=== PATIENT | female | born 1945 | race Hispanic/Latino ===

== ENCOUNTER 2021-09-26 18:15 | Emergency (ER) | payer MEDICARE, BC ==
[2021-09-26 18:55] LABS: #Basophils 0.1 thou/uL (0.0-0.2); #Eosinphils 2.1 thou/uL (0.0-0.7); #Lymphocytes 3.8 thou/uL (1.20-3.40); #Neutrophils 3.4 thou/uL (1.40-6.50); %Basophils 1.2 % (0.0-1.0); %Eosinophils 20.1 % (0.0-10.0); %Lymphocytes 36.3 % (21.0-51.0); %Neutrophils 32.4 % (42.0-75.0); Hemoglobin 12.6 g/dL (12.0-16.0); Mean Corpuscular Volume 90.9 fL (78.0-98.0); Mean Platelet Volume 7.4 fL (7.4-10.4); Platelet Count 249 thou/uL (130-400); RBC Distribution Width 11.9 % (11.5-14.5); Red Blood Cell (RBC) Count 4.18 mill/uL (4.20-5.40); White Blood Cell (WBC) Count 10.4 thou/uL (4.8-10.8)
[2021-09-26 19:16] LABS: ALT (SGPT) 13 U/L (8-55); AST (SGOT) 24 U/L (5-34); Alkaline Phosphatase 61 U/L (40-110); Anion Gap 10 mmol/L (10-20); BUN (Urea Nitrogen) 18 mg/dL (9.8-20.1); Bilirubin, Total 0.3 mg/dL (0.2-1.2); Calc. Creatinine Clearance 0 mL/min (70-130); Calcium 9.3 mg/dL (7.8-10.44); Carbon Dioxide 28 mmol/L (23-31); Chloride 103 mmol/L (98-107); Globulin 3.6 g/dL (2.4-3.5); Glucose 98 mg/dL (83-110); Lipase 33 U/L (8-78); Potassium 4.3 mmol/L (3.5-5.1); Protein, Total 7.6 g/dL (5.8-8.1); Sodium 137 mmol/L (136-145)
== END 2021-09-26 21:16 | disposition home or self-care (01) ==
LOC: ERS 18:15
DX: R07.9 Chest pain, unspecified (principal); E78.00 Pure hypercholesterolemia, unspecified; I10 Essential (primary) hypertension
CPT/HCPCS: 71045; 80053; 83690; 84484; 85025; 93005

== ENCOUNTER 2022-10-21 01:48 | Inpatient (IN) | payer MEDICARE, BC ==
[2022-10-21] MEDS ORDERED: Nitroglycerin 0.4 MG TAB (25 Tab Bottle) SL PRN (03:14)
[2022-10-21 03:23] VITALS: BMI 24.0
[2022-10-21 04:15] LABS: Hemoglobin A1c 5.5 % (4.0-6.0)
[2022-10-21 04:48] LABS: Cardiac Risk 2.8 (Less than 4.5)
[2022-10-21 07:48] LABS: Troponin I 1.936 ng/mL (< 0.028)
[2022-10-21 07:48] LABS: Troponin I 1.305 ng/mL (< 0.028)
[2022-10-21] MEDS: Aspirin Chewable 81 MG TAB PO SCH (08:16)
[2022-10-21] MEDS ORDERED: ALPRAZolam 1 MG TAB PO PRN (09:42)
[2022-10-21] MEDS ORDERED: hydrALAZINE 20 MG/ML VIAL SLOW IVP PRN (09:43)
[2022-10-21 10:12] LABS: #Basophils 0.1 thou/uL (0.0-0.2); #Eosinphils 0.5 thou/uL (0.0-0.7); #Monocytes 0.8 thou/uL (0.11-0.59); #Neutrophils 4.6 thou/uL (1.40-6.50); %Basophils 0.7 % (0.0-1.0); %Eosinophils 5.9 % (0.0-10.0); %Lymphocytes 27.4 % (21.0-51.0); %Monocytes 9.3 % (0.0-10.0); %Neutrophils 55.5 % (42.0-75.0); Hemoglobin 12.6 g/dL (12.0-16.0); Mean Corpuscular HGB CONC 31.8 g/dL (32.0-36.0); Mean Corpuscular Hemoglobin 28.9 pg (27.0-31.0); Mean Corpuscular Volume 90.8 fl (78.0-98.0); Mean Platelet Volume 10.1 fL (7.4-10.4); Platelet Count 231 10x3/uL (130-400); RBC Distribution Width 13.2 % (11.5-14.5); Red Blood Cell (RBC) Count 4.36 mill/uL (4.20-5.40); White Blood Cell (WBC) Count 8.2 10x3/uL (4.8-10.8)
[2022-10-21 11:14] LABS: ALT (SGPT) 15 U/L (8-55); AST (SGOT) 31 U/L (5-34); Albumin 4.1 g/dL (3.4-4.8); Alkaline Phosphatase 68 U/L (40-110); Anion Gap 14 mmol/L (10-20); BUN (Urea Nitrogen) 12 mg/dL (9.8-20.1); Bilirubin, Total 0.5 mg/dL (0.2-1.2); Calc. Creatinine Clearance 59 mL/min (70-130); Carbon Dioxide 24 mmol/L (23-31); Chloride 103 mmol/L (98-107); Estimated GFR 89; Glucose 94 mg/dL (83-110); Phosphorus 3.3 mg/dL (2.3-4.7); Potassium 4.4 mmol/L (3.5-5.1); Protein, Total 7.1 g/dL (5.8-8.1); Sodium 137 mmol/L (136-145)
[2022-10-21] MEDS ORDERED: Communication Order-Pharmacy FS SCH (16:00)
[2022-10-21] MEDS: ALPRAZolam 0.5 MG TAB PO SCH (21:06)
[2022-10-22] MEDS: Sodium Chloride 0.9% 1,000 ML IV SCH ×2 (00:10→10:27)
[2022-10-22 04:56] LABS: #Basophils 0.1 thou/uL (0.0-0.2); #Eosinphils 0.3 thou/uL (0.0-0.7); #Monocytes 0.9 thou/uL (0.11-0.59); #Neutrophils 3.2 thou/uL (1.40-6.50); %Basophils 0.9 % (0.0-1.0); %Eosinophils 4.9 % (0.0-10.0); %Lymphocytes 34.3 % (21.0-51.0); %Monocytes 12.7 % (0.0-10.0); %Neutrophils 47.1 % (42.0-75.0); Hemoglobin 12.1 g/dL (12.0-16.0); Mean Corpuscular HGB CONC 32.1 g/dL (32.0-36.0); Mean Platelet Volume 9.9 fL (7.4-10.4); Platelet Count 232 10x3/uL (130-400); RBC Distribution Width 13.4 % (11.5-14.5); Red Blood Cell (RBC) Count 4.32 mill/uL (4.20-5.40); White Blood Cell (WBC) Count 6.8 10x3/uL (4.8-10.8)
[2022-10-22 05:09] LABS: Mean Corpuscular Volume 87.3 fl (78.0-98.0)
[2022-10-22 05:16] LABS: ALT (SGPT) 14 U/L (8-55); AST (SGOT) 30 U/L (5-34); Albumin 3.6 g/dL (3.4-4.8); Alkaline Phosphatase 61 U/L (40-110); Anion Gap 12 mmol/L (10-20); BUN (Urea Nitrogen) 12 mg/dL (9.8-20.1); Bilirubin, Total 0.5 mg/dL (0.2-1.2); Calc. Creatinine Clearance 63 mL/min (70-130); Calcium 8.8 mg/dL (7.8-10.44); Carbon Dioxide 23 mmol/L (23-31); Chloride 104 mmol/L (98-107); Estimated GFR 90; Globulin 3.2 g/dL (2.4-3.5); Glucose 102 mg/dL (83-110); Potassium 3.8 mmol/L (3.5-5.1); Protein, Total 6.8 g/dL (5.8-8.1); Sodium 135 mmol/L (136-145)
[2022-10-22] MEDS: Atorvastatin Calcium 20 MG TAB PO SCH (06:17)
[2022-10-22] MEDS: ALPRAZolam 0.5 MG TAB PO SCH ×2 (06:17→17:35)
[2022-10-22] MEDS: Aspirin Chewable 81 MG TAB PO SCH (06:17)
[2022-10-22] MEDS ORDERED: Heparin 10,000 UNITS/ 10 ML VIAL ONE (07:50)
[2022-10-22] MEDS ORDERED: Lidocaine 1% (PF) 30 ML VIAL ONE (07:51)
[2022-10-22] MEDS ORDERED: Midazolam HCl 2 mg/2 ml Vial ONE (08:24)
[2022-10-22] MEDS ORDERED: fentaNYL 50 mcg/mL 1 mL Vial ONE (08:24)
[2022-10-22] MEDS ORDERED: TICAGRELOR 90 MG TABLET ONE (08:55)
[2022-10-22] MEDS ORDERED: Nitroglycerin 50 MG/250 ML BOT 250 ML ONE (08:59)
[2022-10-22] MEDS ORDERED: Iopamidol 370 76% 100 ML VIAL ONE (10:18)
[2022-10-22] MEDS: Acetaminophen 325 MG TAB PO PRN ×2 (12:14→17:33)
[2022-10-22] MEDS: TICAGRELOR 90 MG TABLET PO SCH (21:09)
[2022-10-23] MEDS: Acetaminophen 325 MG TAB PO PRN (04:43)
[2022-10-23 05:19] LABS: #Eosinphils 0.1 thou/uL (0.0-0.7); #Monocytes 1.1 thou/uL (0.11-0.59); #Neutrophils 5.8 thou/uL (1.40-6.50); %Basophils 0.5 % (0.0-1.0); %Eosinophils 0.7 % (0.0-10.0); %Lymphocytes 13.5 % (21.0-51.0); %Monocytes 13.5 % (0.0-10.0); %Neutrophils 71.3 % (42.0-75.0); Mean Corpuscular HGB CONC 31.3 g/dL (32.0-36.0); Mean Corpuscular Hemoglobin 27.6 pg (27.0-31.0); Mean Corpuscular Volume 88.2 fl (78.0-98.0); Mean Platelet Volume 10.1 fL (7.4-10.4); Platelet Count 232 10x3/uL (130-400); RBC Distribution Width 13.4 % (11.5-14.5); Red Blood Cell (RBC) Count 3.98 mill/uL (4.20-5.40); White Blood Cell (WBC) Count 8.1 10x3/uL (4.8-10.8)
[2022-10-23 05:57] LABS: ALT (SGPT) 14 U/L (8-55); AST (SGOT) 41 U/L (5-34); Albumin 3.5 g/dL (3.4-4.8); Alkaline Phosphatase 56 U/L (40-110); Anion Gap 12 mmol/L (10-20); BUN (Urea Nitrogen) 9 mg/dL (9.8-20.1); Bilirubin, Total 0.8 mg/dL (0.2-1.2); Calc. Creatinine Clearance 61 mL/min (70-130); Calcium 8.8 mg/dL (7.8-10.44); Carbon Dioxide 25 mmol/L (23-31); Chloride 103 mmol/L (98-107); Estimated GFR 89; Globulin 3.1 g/dL (2.4-3.5); Glucose 103 mg/dL (83-110); Potassium 3.5 mmol/L (3.5-5.1); Protein, Total 6.6 g/dL (5.8-8.1); Sodium 136 mmol/L (136-145)
[2022-10-23] MEDS: Aspirin Chewable 81 MG TAB PO SCH (08:21)
[2022-10-23] MEDS: ALPRAZolam 0.5 MG TAB PO SCH (08:21)
[2022-10-23] MEDS: Atorvastatin Calcium 20 MG TAB PO SCH (08:22)
[2022-10-23] MEDS: TICAGRELOR 90 MG TABLET PO SCH (08:22)
[2022-10-23] MEDS ORDERED: Lisinopril 2.5 MG TAB PO SCH (09:00)
[2022-10-23 12:38] VITALS: TEMP 97.8
[2022-10-23 13:14] VITALS: BP 150/76
== END 2022-10-23 15:00 | disposition home or self-care (01) | DRG 247 ==
LOC: 2SW 02:57 → OBSVTOIN 16:07
PROVIDERS: ADMIT Internal Medicine; ATTEND Hospitalist
PROC: 027035Z Dilation of Coronary Artery, One Artery with Two Drug-eluting Intraluminal Devices, Percutaneous Approach (ICD-10-PCS; principal; 2022-10-21)
PROC: 4A023N7 Measurement of Cardiac Sampling and Pressure, Left Heart, Percutaneous Approach (ICD-10-PCS; 2022-10-21)
PROC: B2151ZZ Fluoroscopy of Left Heart using Low Osmolar Contrast (ICD-10-PCS; 2022-10-21)
PROC: B2111ZZ Fluoroscopy of Multiple Coronary Arteries using Low Osmolar Contrast (ICD-10-PCS; 2022-10-21)
DX: I21.4 Non-ST elevation (NSTEMI) myocardial infarction (principal); E78.5 Hyperlipidemia, unspecified; I10 Essential (primary) hypertension; F41.9 Anxiety disorder, unspecified; F32.A Depression, unspecified; I25.10 Atherosclerotic heart disease of native coronary artery without angina pectoris; Z79.899 Other long term (current) drug therapy; Z90.49 Acquired absence of other specified parts of digestive tract
CPT/HCPCS: 36415; 71045; 80053; 80061; 83036; 83735; 83880; 84100; 84145; 84443; 85025; 85347; 92928; 93005; 93010; 93306; 93458; 93798; 99152; 99153; C1760; C1769; C1874; C1887; C9600; G0378; J1644; J1650; J2001; J2250; J3010; J7050

== ENCOUNTER 2023-08-20 04:09 | Inpatient (IN) | payer BC, MEDICARE ==
[2023-08-20 04:32] LABS: #Basophils 0.1 thou/uL (0.0-0.2); #Eosinphils 0.7 thou/uL (0.0-0.7); #Monocytes 0.9 thou/uL (0.11-0.59); #Neutrophils 5.3 thou/uL (1.40-6.50); %Basophils 0.7 % (0.0-1.0); %Eosinophils 7.5 % (0.0-10.0); %Lymphocytes 19.9 % (21.0-51.0); %Monocytes 10.2 % (0.0-10.0); %Neutrophils 61.5 % (42.0-75.0); Hematocrit 36.1 % (36.0-47.0); Hemoglobin 11.7 g/dL (12.0-16.0); Mean Corpuscular HGB CONC 32.4 g/dL (32.0-36.0); Mean Corpuscular Hemoglobin 28.8 pg (27.0-31.0); Mean Corpuscular Volume 88.9 fl (78.0-98.0); Mean Platelet Volume 10.2 fL (7.4-10.4); Platelet Count 274 10x3/uL (130-400); RBC Distribution Width 13.6 % (11.5-14.5); Red Blood Cell (RBC) Count 4.06 mill/uL (4.20-5.40); White Blood Cell (WBC) Count 8.6 10x3/uL (4.8-10.8)
[2023-08-20 04:57] LABS: ALT (SGPT) 21 U/L (8-55); AST (SGOT) 53 U/L (5-34); Albumin 3.9 g/dL (3.4-4.8); Alkaline Phosphatase 66 U/L (40-110); Anion Gap 13 mmol/L (10-20); BUN (Urea Nitrogen) 12 mg/dL (9.8-20.1); Bilirubin, Total 0.5 mg/dL (0.2-1.2); Calc. Creatinine Clearance 0 mL/min (70-130); Calcium 8.8 mg/dL (7.8-10.44); Carbon Dioxide 25 mmol/L (23-31); Chloride 101 mmol/L (98-107); Estimated GFR 80; Globulin 3.4 g/dL (2.4-3.5); Glucose 115 mg/dL (83-110); Potassium 3.6 mmol/L (3.5-5.1); Protein, Total 7.3 g/dL (5.8-8.1); Sodium 135 mmol/L (136-145)
[2023-08-20 05:06] LABS: Troponin I 4.008 ng/mL (< 0.028)
[2023-08-20] MEDS ORDERED: Heparin 5,000 UNITS/ML VIAL ONE (05:39)
[2023-08-20] MEDS ORDERED: Heparin 25,000 units/D5W 500 ML ONE (05:40)
[2023-08-20 05:49] LABS: PTT 27.1 sec (22.9-36.1); Prothrombin Time 12.7 sec (12.0-14.7)
[2023-08-20] MEDS ORDERED: Aspirin Chewable 81 MG TAB ONE ×2 (06:02→09:18)
[2023-08-20] MEDS ORDERED: Nitroglycerin 0.4 MG TAB (25 Tab Bottle) ONE (07:03)
[2023-08-20] MEDS ORDERED: Acetaminophen 650 MG Suppository PR PRN (08:09)
[2023-08-20] MEDS ORDERED: Ondansetron PF 4 MG/2 ML Vial IVP PRN (08:09)
[2023-08-20] MEDS ORDERED: Communication Order-Pharmacy FS PRN (08:09)
[2023-08-20] MEDS ORDERED: Bisacodyl 5 MG TAB PO PRN (08:09)
[2023-08-20] MEDS ORDERED: Senokot S 8.6-50 MG TAB PO PRN (08:09)
[2023-08-20] MEDS ORDERED: Heparin 25,000 units/D5W 500 ML IVPB SCH (08:15)
[2023-08-20 08:26] LABS: Hematocrit 36.2 % (36.0-47.0); Hemoglobin 11.4 g/dL (12.0-16.0); Platelet Count 251 10x3/uL (130-400)
[2023-08-20] MEDS ORDERED: Acetaminophen 325 MG TAB ONE (09:11)
[2023-08-20] MEDS: Acetaminophen 325 MG TAB PO PRN (09:13)
[2023-08-20] MEDS: Lisinopril 2.5 MG TAB PO SCH (10:33)
[2023-08-20] MEDS: Aspirin Chewable 81 MG TAB PO SCH (10:33)
[2023-08-20] MEDS: TICAGRELOR 90 MG TABLET PO SCH (10:34)
[2023-08-20 12:14] LABS: Critical Call Chem Troponin I NUR.MC19 @1214; Troponin I 5.785 ng/mL (< 0.028)
[2023-08-20 19:05] LABS: Critical Call Chem Troponin I NUR.AP12 @1905; Troponin I 6.049 ng/mL (< 0.028)
[2023-08-20] MEDS: Heparin 10,000 UNITS/ 10 ML VIAL SLOW IVP SCH (19:17)
[2023-08-20] MEDS: Atorvastatin Calcium 40 MG TAB PO SCH (21:20)
[2023-08-20] MEDS: ALPRAZolam 0.5 MG TAB PO SCH (21:23)
[2023-08-21 02:07] LABS: #Basophils 0.1 thou/uL (0.0-0.2); #Monocytes 1.5 thou/uL (0.11-0.59); #Neutrophils 8.2 thou/uL (1.40-6.50); %Basophils 0.4 % (0.0-1.0); %Eosinophils 0.4 % (0.0-10.0); %Lymphocytes 11.8 % (21.0-51.0); %Monocytes 13.1 % (0.0-10.0); %Neutrophils 73.9 % (42.0-75.0); Hematocrit 35.6 % (36.0-47.0); Hemoglobin 12.1 g/dL (12.0-16.0); Mean Platelet Volume 10.3 fL (7.4-10.4); Platelet Count 262 10x3/uL (130-400); RBC Distribution Width 13.5 % (11.5-14.5); Red Blood Cell (RBC) Count 4.17 mill/uL (4.20-5.40); White Blood Cell (WBC) Count 11.2 10x3/uL (4.8-10.8)
[2023-08-21 02:12] LABS: Mean Corpuscular Volume 85.4 fl (78.0-98.0)
[2023-08-21 03:00] LABS: Anion Gap 16 mmol/L (10-20); BUN (Urea Nitrogen) 9 mg/dL (9.8-20.1); Calc. Creatinine Clearance 59 mL/min (70-130); Carbon Dioxide 22 mmol/L (23-31); Cardiac Risk 2.5 (Less than 4.5); Chloride 99 mmol/L (98-107); Cholesterol 170 mg/dl (< 200 Desired); Estimated GFR 91; Glucose 116 mg/dL (83-110); HDL Cholesterol 68 mg/dL (>60 Neg Risk); LDL Cholesterol, Calculated 83 mg/dL; Potassium 3.6 mmol/L (3.5-5.1); Sodium 133 mmol/L (136-145); Triglycerides 93 mg/dL (Less than 150)
[2023-08-21] MEDS: Sodium Chloride 0.9% 1,000 ML IV SCH (05:57)
[2023-08-21] MEDS ORDERED: Communication Order-Pharmacy FS SCH (06:00)
[2023-08-21] MEDS ORDERED: Heparin 10,000 UNITS/ 10 ML VIAL ONE (06:59)
[2023-08-21] MEDS ORDERED: Lidocaine 1% (PF) 30 ML VIAL ONE (06:59)
[2023-08-21] MEDS ORDERED: Nitroglycerin 50 MG/250 ML BOT 250 ML ONE (07:00)
[2023-08-21] MEDS ORDERED: Midazolam HCl 2 mg/2 ml Vial ONE (08:46)
[2023-08-21] MEDS ORDERED: fentaNYL 50 mcg/mL 1 mL Vial ONE (08:46)
[2023-08-21] MEDS ORDERED: Morphine 2 MG/ML VIAL ONE (11:00)
[2023-08-21] MEDS: Morphine 2 MG/ML VIAL SLOW IVP PRN (11:04)
[2023-08-21] MEDS ORDERED: Acetaminophen 325 MG TAB ONE (11:58)
[2023-08-21] MEDS ORDERED: Morphine 4 MG/ML VIAL ONE (15:27)
[2023-08-21] MEDS: Morphine 4 MG/ML VIAL SLOW IVP PRN (15:34)
[2023-08-21] MEDS: ALPRAZolam 1 MG TAB PO PRN (21:17)
[2023-08-21] MEDS: Ondansetron ODT 4 MG TAB PO PRN (21:23)
[2023-08-22 05:10] LABS: #Monocytes 1.3 thou/uL (0.11-0.59); #Neutrophils 5.9 thou/uL (1.40-6.50); %Basophils 0.4 % (0.0-1.0); %Eosinophils 0.1 % (0.0-10.0); %Lymphocytes 12.4 % (21.0-51.0); %Monocytes 15.7 % (0.0-10.0); Hematocrit 33.3 % (36.0-47.0); Hemoglobin 10.7 g/dL (12.0-16.0); Mean Corpuscular HGB CONC 32.1 g/dL (32.0-36.0); Mean Corpuscular Hemoglobin 28.3 pg (27.0-31.0); Mean Corpuscular Volume 88.1 fl (78.0-98.0); Mean Platelet Volume 10.5 fL (7.4-10.4); Platelet Count 232 10x3/uL (130-400); RBC Distribution Width 13.9 % (11.5-14.5); Red Blood Cell (RBC) Count 3.78 mill/uL (4.20-5.40); White Blood Cell (WBC) Count 8.2 10x3/uL (4.8-10.8)
[2023-08-22 05:38] LABS: ALT (SGPT) 87 U/L (8-55); AST (SGOT) 108 U/L (5-34); Albumin 3.5 g/dL (3.4-4.8); Alkaline Phosphatase 109 U/L (40-110); Anion Gap 13 mmol/L (10-20); BUN (Urea Nitrogen) 13 mg/dL (9.8-20.1); Bilirubin, Total 1.2 mg/dL (0.2-1.2); Calc. Creatinine Clearance 56 mL/min (70-130); Calcium 8.8 mg/dL (7.8-10.44); Carbon Dioxide 23 mmol/L (23-31); Chloride 104 mmol/L (98-107); Estimated GFR 90; Glucose 96 mg/dL (83-110); Potassium 3.9 mmol/L (3.5-5.1); Protein, Total 6.5 g/dL (5.8-8.1); Sodium 136 mmol/L (136-145)
[2023-08-22] MEDS: Metoprolol Tartrate 5 MG (5 mL) VIAL IVP PRN (06:54)
[2023-08-22 07:03] LABS: Hematocrit 36.2 % (36.0-47.0); Hemoglobin 11.6 g/dL (12.0-16.0); Platelet Count 236 10x3/uL (130-400)
[2023-08-22 07:28] LABS: Magnesium 1.9 mg/dL (1.6-2.6)
[2023-08-22 07:38] LABS: Critical Call Chem Troponin I NUR.MHC@0737; Troponin I 6.485 ng/mL (< 0.028)
[2023-08-22] MEDS: Apixaban 2.5 MG TAB PO SCH (21:19)
[2023-08-22] MEDS: Amiodarone 200 MG TAB PO SCH (21:19)
[2023-08-22] MEDS: Lisinopril 5 MG TAB PO SCH (21:19)
[2023-08-23 05:08] LABS: #Eosinphils 0.1 thou/uL (0.0-0.7); #Monocytes 1.2 thou/uL (0.11-0.59); #Neutrophils 5.4 thou/uL (1.40-6.50); %Basophils 0.5 % (0.0-1.0); %Eosinophils 1.8 % (0.0-10.0); %Lymphocytes 14.6 % (21.0-51.0); %Monocytes 15.2 % (0.0-10.0); %Neutrophils 67.4 % (42.0-75.0); Hematocrit 32.2 % (36.0-47.0); Hemoglobin 10.3 g/dL (12.0-16.0); Mean Corpuscular Hemoglobin 28.7 pg (27.0-31.0); Mean Corpuscular Volume 89.7 fl (78.0-98.0); Mean Platelet Volume 10.8 fL (7.4-10.4); Platelet Count 238 10x3/uL (130-400); Red Blood Cell (RBC) Count 3.59 mill/uL (4.20-5.40)
[2023-08-23 05:45] LABS: Anion Gap 13 mmol/L (10-20); BUN (Urea Nitrogen) 13 mg/dL (9.8-20.1); Calc. Creatinine Clearance 54 mL/min (70-130); Calcium 8.9 mg/dL (7.8-10.44); Carbon Dioxide 27 mmol/L (23-31); Chloride 101 mmol/L (98-107); Estimated GFR 89; Glucose 91 mg/dL (83-110); Potassium 3.6 mmol/L (3.5-5.1); Sodium 137 mmol/L (136-145)
[2023-08-23] MEDS: Carvedilol 3.125 MG TAB PO SCH (08:36)
[2023-08-23] MEDS: Aspirin 81 mg Enteric Coated Tablet PO SCH (08:36)
[2023-08-23 12:48] VITALS: BP 121/58; TEMP 97.4
[2023-08-23] MEDS ORDERED: FLU VACC QS2023(65UP)/MF59C/PF 60 MCG/0.5 ML SYRINGE IM ONE (18:45)
[2023-09-05] MEDS ORDERED: Amiodarone 200 MG TAB PO SCH (09:00)
[2023-09-19] MEDS ORDERED: Amiodarone 200 MG TAB PO SCH (09:00)
== END 2023-08-23 14:55 | disposition home or self-care (01) | DRG 322 ==
LOC: ERS 04:09 → ERHOLD 06:37 → 2NO 17:10
PROVIDERS: ADMIT Student in an Organized Health Care Education/Training Program; ATTEND Internal Medicine
PROC: 4A023N7 Measurement of Cardiac Sampling and Pressure, Left Heart, Percutaneous Approach (ICD-10-PCS; principal; 2023-08-21)
PROC: 027035Z Dilation of Coronary Artery, One Artery with Two Drug-eluting Intraluminal Devices, Percutaneous Approach (ICD-10-PCS; 2023-08-21)
PROC: B2151ZZ Fluoroscopy of Left Heart using Low Osmolar Contrast (ICD-10-PCS; 2023-08-21)
PROC: B2111ZZ Fluoroscopy of Multiple Coronary Arteries using Low Osmolar Contrast (ICD-10-PCS; 2023-08-21)
DX: I21.4 Non-ST elevation (NSTEMI) myocardial infarction (principal); I25.10 Atherosclerotic heart disease of native coronary artery without angina pectoris; I10 Essential (primary) hypertension; Z79.899 Other long term (current) drug therapy; Z79.82 Long term (current) use of aspirin; E78.00 Pure hypercholesterolemia, unspecified; I25.2 Old myocardial infarction; Z90.710 Acquired absence of both cervix and uterus; F41.9 Anxiety disorder, unspecified; Z90.49 Acquired absence of other specified parts of digestive tract; Z83.3 Family history of diabetes mellitus; I48.0 Paroxysmal atrial fibrillation
CPT/HCPCS: 36415; 80048; 80053; 80061; 83735; 83880; 84484; 85014; 85018; 85025; 85049; 85347; 85610; 85730; 92928; 93005; 93010; 93458; 93798; 96365; 96366; 96374; 99152; 99153; C1769; C1874; C1887; C9600; J1644; J2001; J2250; J2270; J2272; J3010; J7050; Q0162

== ENCOUNTER 2025-02-20 03:04 | Observation (INO) | payer BC, MEDICARE ==
[2025-02-20 03:52] LABS: #Basophils 0.07 10x3/uL (0.0-0.2); #Eosinophils 0.56 10x3/uL (0.0-0.7); #Monocytes 0.75 10x3/uL (0.11-0.59); #Neutrophils 1.82 10x3/uL (1.40-6.50); %Basophils 1.3 % (0.0-1.0); %Eosinophils 10.7 % (0.0-10.0); %Lymphocytes 38.5 % (21.0-51.0); %Monocytes 14.4 % (0.0-10.0); %Neutrophils 34.9 % (42.0-75.0); Hematocrit 36.3 % (36.0-47.0); Hemoglobin 11.2 g/dL (12.0-16.0); Mean Corpuscular Hemoglobin 27.9 pg (27.0-31.0); Mean Corpuscular Volume 90.5 fL (78.0-98.0); Platelet Count 232 10x3/uL (130-400); Red Blood Cell (RBC) Count 4.01 mill/uL (4.20-5.40); White Blood Cell (WBC) Count 5.22 10x3/uL (4.8-10.8)
[2025-02-20 04:09] LABS: ALT (SGPT) 19 U/L (Less than 34); AST (SGOT) 31 U/L (11-34); Albumin 3.6 g/dL (3.1-4.5); Alkaline Phosphatase 54 U/L (40-110); Anion Gap 11 mmol/L (10-20); BUN (Urea Nitrogen) 12 mg/dL (9.8-20.1); Bilirubin, Total 0.3 mg/dL (0.3-1.2); Calc. Creatinine Clearance 0 mL/min (70-130); Calcium 8.9 mg/dL (7.8-10.44); Carbon Dioxide 26 mmol/L (23-31); Chloride 104 mmol/L (98-107); Globulin 3.1 g/dL (2.4-3.5); Glucose 82 mg/dL (83-110); Potassium 3.8 mmol/L (3.5-5.1); Sodium 137 mmol/L (136-145)
[2025-02-20 04:34] LABS: INR-International Normal Ratio 1.1; PTT 32.7 sec (22.9-36.1); Prothrombin Time 13.9 sec (12.0-14.7)
[2025-02-20] MEDS ORDERED: Ketorolac Tromethamine 30 MG (1 mL) VIAL ONE (05:03)
[2025-02-20] MEDS ORDERED: Nitroglycerin 2% Ointment 1 INCH/1 GM Packet ONE (05:44)
[2025-02-20] MEDS ORDERED: Ondansetron PF 4 MG/2 ML Vial IVP PRN (06:29)
[2025-02-20] MEDS ORDERED: Calcium Carbonate 500 MG ChewTAB PO PRN (06:29)
[2025-02-20] MEDS ORDERED: Senokot S 8.6-50 MG TAB PO PRN (06:29)
[2025-02-20] MEDS ORDERED: Electrolyte Replacement Protocol 1 EACH FS SCH (06:30)
[2025-02-20] MEDS ORDERED: hydrALAZINE 20 MG/ML VIAL SLOW IVP PRN (06:31)
[2025-02-20] MEDS ORDERED: Nitroglycerin 0.4 MG TAB (25 Tab Bottle) SL PRN (06:31)
[2025-02-20 06:57] VITALS: BMI 21.3
[2025-02-20] MEDS ORDERED: Enoxaparin 40 MG (0.4 mL) SYRINGE SC SCH (09:00)
[2025-02-20] MEDS: Lisinopril 10 MG TAB PO SCH (09:01)
[2025-02-20] MEDS: Ezetimibe 10 MG TAB PO SCH (09:01)
[2025-02-20] MEDS: Acetaminophen 325 MG TAB PO PRN (09:01)
[2025-02-20] MEDS: Apixaban 2.5 MG TAB PO SCH (09:01)
[2025-02-20] MEDS: Carvedilol 3.125 MG TAB PO SCH (09:02)
[2025-02-20] MEDS: Aspirin 81 mg Enteric Coated Tablet PO SCH (09:04)
[2025-02-20] MEDS: Melatonin 3 MG TAB PO PRN (23:44)
[2025-02-21 04:51] LABS: #Basophils 0.06 10x3/uL (0.0-0.2); #Eosinophils 0.54 10x3/uL (0.0-0.7); #Monocytes 0.80 10x3/uL (0.11-0.59); #Neutrophils 3.60 10x3/uL (1.40-6.50); %Basophils 0.9 % (0.0-1.0); %Eosinophils 7.7 % (0.0-10.0); %Lymphocytes 28.5 % (21.0-51.0); %Monocytes 11.4 % (0.0-10.0); %Neutrophils 51.2 % (42.0-75.0); Hematocrit 32.5 % (36.0-47.0); Hemoglobin 10.3 g/dL (12.0-16.0); Mean Corpuscular Hemoglobin 28.3 pg (27.0-31.0); Mean Corpuscular Volume 89.3 fL (78.0-98.0); Platelet Count 211 10x3/uL (130-400); Red Blood Cell (RBC) Count 3.64 mill/uL (4.20-5.40); White Blood Cell (WBC) Count 7.02 10x3/uL (4.8-10.8)
[2025-02-21 05:06] LABS: Anion Gap 13 mmol/L (10-20); BUN (Urea Nitrogen) 15 mg/dL (9.8-20.1); Calc. Creatinine Clearance 56 mL/min (70-130); Calcium 8.4 mg/dL (7.8-10.44); Carbon Dioxide 24 mmol/L (23-31); Chloride 102 mmol/L (98-107); Glucose 89 mg/dL (83-110); Potassium 3.6 mmol/L (3.5-5.1); Sodium 135 mmol/L (136-145)
[2025-02-21 12:07] VITALS: BP 132/62; TEMP 97.3
== END 2025-02-21 15:48 | disposition home or self-care (01) ==
LOC: ERS 03:04 → 2NO 05:34
PROVIDERS: ADMIT Internal Medicine; ATTEND Internal Medicine
DX: R07.89 Other chest pain (principal); I25.10 Atherosclerotic heart disease of native coronary artery without angina pectoris; I48.0 Paroxysmal atrial fibrillation; I10 Essential (primary) hypertension; E78.5 Hyperlipidemia, unspecified; Z95.5 Presence of coronary angioplasty implant and graft; Z90.49 Acquired absence of other specified parts of digestive tract; Z79.01 Long term (current) use of anticoagulants; Z79.02 Long term (current) use of antithrombotics/antiplatelets; Z79.899 Other long term (current) drug therapy
CPT/HCPCS: 71045; 78452; 80048; 80053; 84484 ×2; 85025 ×2; 85610; 85730; 93005; 93017; 96374; 99285; A9502; J1885; J2785 ×2; 36415; G0378

== ENCOUNTER 2025-06-04 06:45 | Observation (INO) | payer MEDICARE ==
[2025-06-04 07:12] LABS: #Basophils 0.06 10x3/uL (0.0-0.2); #Eosinophils 0.73 10x3/uL (0.0-0.7); #Monocytes 0.64 10x3/uL (0.11-0.59); #Neutrophils 2.53 10x3/uL (1.40-6.50); %Basophils 1.1 % (0.0-1.0); %Eosinophils 13.4 % (0.0-10.0); %Lymphocytes 27.0 % (21.0-51.0); %Monocytes 11.8 % (0.0-10.0); %Neutrophils 46.5 % (42.0-75.0); Hematocrit 35.3 % (36.0-47.0); Hemoglobin 11.2 g/dL (12.0-16.0); Mean Corpuscular Hemoglobin 28.0 pg (27.0-31.0); Mean Corpuscular Volume 88.3 fL (78.0-98.0); Platelet Count 214 10x3/uL (130-400); Red Blood Cell (RBC) Count 4.00 mill/uL (4.20-5.40); White Blood Cell (WBC) Count 5.44 10x3/uL (4.8-10.8)
[2025-06-04 07:26] LABS: ALT (SGPT) 13 U/L (Less than 34); AST (SGOT) 24 U/L (11-34); Albumin 3.8 g/dL (3.1-4.5); Alkaline Phosphatase 47 U/L (40-110); Anion Gap 12 mmol/L (10-20); BUN (Urea Nitrogen) 14 mg/dL (9.8-20.1); Bilirubin, Total 0.4 mg/dL (0.3-1.2); Calc. Creatinine Clearance 0 mL/min (70-130); Calcium 9.1 mg/dL (7.8-10.44); Carbon Dioxide 28 mmol/L (23-31); Chloride 101 mmol/L (98-107); Globulin 3.1 g/dL (2.4-3.5); Glucose 95 mg/dL (83-110); Potassium 4.1 mmol/L (3.5-5.1); Sodium 137 mmol/L (136-145)
[2025-06-04] MEDS ORDERED: Aspirin Chewable 81 MG TAB ONE (08:20)
[2025-06-04] MEDS ORDERED: Nitroglycerin 0.4 MG TAB 1 EACH ONE (08:21)
[2025-06-04] MEDS ORDERED: Iopamidol-370 76% 500 ML MDV (1 ML CHARGE) ONE (08:54)
[2025-06-04] MEDS ORDERED: Senokot S 8.6-50 MG TAB PO PRN (09:27)
[2025-06-04] MEDS ORDERED: Nitroglycerin 0.4 MG TAB (25 Tab Bottle) SL PRN (09:27)
[2025-06-04] MEDS ORDERED: Guaifenesin DM 100-10/5 ML UDCUP PO PRN (09:27)
[2025-06-04] MEDS ORDERED: Ondansetron PF 4 MG/2 ML Vial IVP PRN (09:27)
[2025-06-04] MEDS ORDERED: Enoxaparin 60 MG (0.6 mL) SYRINGE ONE (09:52)
[2025-06-04 11:56] VITALS: BMI 21.0
[2025-06-04] MEDS: Acetaminophen 325 MG TAB PO SCH (12:55)
[2025-06-04] MEDS: Carvedilol 3.125 MG TAB PO SCH (17:27)
[2025-06-04] MEDS: hydrALAZINE 20 MG/ML VIAL SLOW IVP PRN (18:09)
[2025-06-04] MEDS: Lisinopril 10 MG TAB PO SCH (21:08)
[2025-06-04] MEDS: Apixaban 2.5 MG TAB PO SCH (21:09)
[2025-06-05 05:49] LABS: #Basophils 0.05 10x3/uL (0.0-0.2); #Eosinophils 0.61 10x3/uL (0.0-0.7); #Monocytes 0.95 10x3/uL (0.11-0.59); #Neutrophils 3.07 10x3/uL (1.40-6.50); %Basophils 0.8 % (0.0-1.0); %Eosinophils 9.2 % (0.0-10.0); %Lymphocytes 29.3 % (21.0-51.0); %Monocytes 14.3 % (0.0-10.0); %Neutrophils 46.1 % (42.0-75.0); Hematocrit 32.1 % (36.0-47.0); Hemoglobin 10.5 g/dL (12.0-16.0); Mean Corpuscular Hemoglobin 28.6 pg (27.0-31.0); Mean Corpuscular Volume 87.5 fL (78.0-98.0); Platelet Count 211 10x3/uL (130-400); Red Blood Cell (RBC) Count 3.67 mill/uL (4.20-5.40); White Blood Cell (WBC) Count 6.65 10x3/uL (4.8-10.8)
[2025-06-05 06:22] LABS: Anion Gap 12 mmol/L (10-20); BUN (Urea Nitrogen) 11 mg/dL (9.8-20.1); Calc. Creatinine Clearance 61 mL/min (70-130); Calcium 8.3 mg/dL (7.8-10.44); Carbon Dioxide 24 mmol/L (23-31); Cardiac Risk 2.4 (Less than 4.5); Chloride 103 mmol/L (98-107); Cholesterol 129 mg/dl (< 200 Desired); Glucose 90 mg/dL (83-110); HDL Cholesterol 53 mg/dL (>60 Neg Risk); LDL Cholesterol, Calculated 61 mg/dL; Potassium 3.9 mmol/L (3.5-5.1); Sodium 135 mmol/L (136-145); Triglycerides 76 mg/dL (Less than 150)
[2025-06-05] MEDS: Ezetimibe 10 MG TAB PO SCH (08:41)
[2025-06-05] MEDS ORDERED: Aspirin 81 mg Enteric Coated Tablet PO SCH (09:00)
[2025-06-05 12:16] VITALS: BP 165/69; TEMP 97.6
== END 2025-06-05 14:16 | disposition home or self-care (01) ==
LOC: ERS 06:45 → OBS 09:38
PROVIDERS: ADMIT Hospitalist; ATTEND Internal Medicine
DX: I20.0 Unstable angina (principal); I10 Essential (primary) hypertension; F41.9 Anxiety disorder, unspecified; E78.5 Hyperlipidemia, unspecified; K59.09 Other constipation; Z90.710 Acquired absence of both cervix and uterus; Z79.899 Other long term (current) drug therapy
CPT/HCPCS: 71045; 71275; 74174; 80048; 80053; 80061; 83690; 84484 ×2; 85025 ×2; 93005; 94760; J0360; J1650; J7030; 36415; 96372; 96374; G0378; Q9967